=== PATIENT | female | born 1960 | race Caucasian/White ===

== ENCOUNTER → 2019-06-19 14:58 | Outpatient (CLI) | payer OTHER, SELFPAY ==
[2019-06-19 17:52] LABS: Absolute Lymphocyte Count 2.03 X10^3/uL (0.83-4.51); Absolute Neutrophil Count 4.6 X10^3/uL (2.0-7.7); Basophil# 0.07 X10^3/uL; Basophil% 0.9 % (0-1); Eosinophil# 0.24 X10^3/uL; Eosinophils% 3.2 % (0-5); Hematocrit 41.6 % (37-47); Hemoglobin 13.3 g/dL (12.0-15.0); Lymphocyte # 2.03 X10^3/ul (4.0); Lymphocyte % 27.2 % (19-41); Mean Corpuscular Hgb 28.4 pg (27.0-32.0); Mean Corpuscular Volume 88.9 fL (81-99); Mean Platelet Vol. 10.3 fl (6.2-12.0); Monocyte# 0.47 X10^3/uL; Monocyte% 6.3 % (0-10); NRBC Flagged by Analyzer 0 % (0-5); Neutrophil # 4.62 X10^3/uL (2.7-7.7); Platelet Count 316 K/mm3 (150-450); RBC Distribution Width CV 13.2 % (11.6-14.6); RBC Distribution Width SD 43.1 fl (35.1-43.9); Red Blood Count 4.68 M/mm3 (4.2-5.4); White Blood Count 7.5 K/mm3 (4.4-11.0)
[2019-06-19 18:11] LABS: AST(SGOT) 19 U/L (15-37); Alanine Aminotransfer ALT/SGPT 28 U/L (13-56); Albumin, Serum 3.5 g/dL (3.2-5.0); Alkaline Phosphatase 55 U/L (45-117); Anion Gap 5 (5-15); BUN 25 mg/dL (7-18); BUN/Creat Ratio 28.7 RATIO (10-20); Calcium,Total 9.3 mg/dL (8.5-10.1); Chloride 104 mmol/L (98-107); Creatinine, Serum 0.87 mg/dL (0.55-1.02); EST Glomerular Filtration Rate 70 mL/min (>60); Est Glom Filt Rate - Afr Amer 85 mL/min (>60); Globulin 3.6 g/dL (2.2-4.2); Glucose 84 mg/dL (74-106); Potassium 4.2 mmol/L (3.5-5.1); Protein, Total 7.1 g/dL (6.4-8.2); Sodium Level 139 mmol/L (136-145)
--- NOTE | 2019-07-06 10:12 | DCINST_ITS ---
Discharge Diet: Light diet - advance as tolerated Discharge Activity: May Not Drive Weight Bearing Status: Partial weight bearing - No weight on toes right foot, ok to put weight on heel Keep extremity elevated above heart level: Right Leg - Keep right foot elevated at least 50 minutes of every hour Call your doctor if your incision/area has: Continuous Slow Oozing, Foul Smelling Discharge Call your doctor if you observe: Fever of 101 or Higher, Shortness of breath, Chest pain, Calf discomfort, Uncontrolled pain Cleanse incision/area with: Do not get Incision Wet, Keep Dressing Clean & Dry Allergies/Adverse Reactions: Allergies No Known Allergies Allergy (Verified 07/06/19 09:52) Medications to take at Discharge Duloxetine Hcl [Cymbalta] 60 mg PO DAILY 06/29/19 Zolpidem Tartrate [Ambien] 10 mg PO QHS PRN 06/29/19 buPROPion tablets [Wellbutrin tablets] 100 mg PO BID 06/29/19 Primary Care Physician: Reyna Garcia MD [Primary Care Provider] - Test Results: Test results from this visit will be discussed in further detail at your follow- up appointment, if applicable. Please Follow Up With: Sudheer Werner DPM - Call Dr. Werner if needed: [phone] (office) or [phone] (cell) When: 1 week, sooner if needed
== END ==
LOC: MFPLAB 15:12 → AC 07-06 09:39 → MFPLAB 07-06 11:50
PROVIDERS: PCP Family Medicine; Referring Provider Family Medicine; Visit Provider Family Medicine
DX: Z01.818 Encounter for other preprocedural examination (principal)
CPT/HCPCS: 36415; 80053; 85025; J7120; J2405

== ENCOUNTER 2019-07-06 11:52 | Day surgery (SDC) | payer OTHER, SELFPAY ==
[2019-07-06] VITALS (7 sets, daily range): BP systolic 123–158; BP diastolic 70–92; PULSE 51–57; RESP 16; TEMP 36.8–37.1; O2SAT 100; BMI 31.1
[2019-07-06] MEDS: Lactated Ringers 1,000 ML 100 ML IV (10:07)
[2019-07-06] MEDS: Cefazolin 2 GM in 0.9% Normal Saline 100 ML IV (10:37)
--- NOTE | 2019-07-06 11:00 | RAD_ITS ---
STUDY: X-RAY RIGHT FOOT, TOE REASON FOR EXAM: Female, 59 years old. Excision of bone fragment right first toe TECHNIQUE: 4 intraoperative view(s) of the toe were obtained. COMPARISON: None. FINDINGS: 4 limited intraoperative views were performed as the patient has undergone a procedure to the distal phalanx of the great toe. RAD/Toe(s) Min 2 Views IMPRESSION: Intraoperative changes to the distal phalanx of the great toe Electronically Signed: Bran Latif MD at 13:17 EST , Service support ,
--- NOTE | 2019-07-06 11:00 | BON_PTH ---
PATIENT: CHAITANYA NICOLE LOC[place] [facility] [place][id number] AGE/SX: 59/F ROOM: RE07/06/[address]: Dr. Sudheer Werner DPM : 1960 BED: DIS: 07/06/2019 SPEC #: [id number] RECD: 07/06/19 14:34 STATUS: NIKITA RESteven #: [id number] [place]: 07/06/19 11:[address]: Sudheer Werner DEPT: SURGICAL PATHOLOGY RECD BY: Abiola Lara ENTERED: 07/09/19 12:28 SP TYPE: Bone OTHR DR: Dr. Reyna Garcia MD Tissues: Bone of foot, NOS Procedures: Decalcification bone/plaque Surgery Specimen Level IV HEADER OPERATION: Excision of bone fragment with arthroplasty/debridement first toe PRE-OP DIAGNOSIS: Displaced fracture first toe TISSUE SUBMITTED: First toe fracture MICROSCOPIC DIAGNOSIS First toe, fracture, bone, biopsy: Osteocollagenous tissue with reparative and reactive change. The findings are consistent with organizing fracture callous. AM:zenon 07/12/19 MICROSCOPIC DESCRIPTION Slides are reviewed. GROSS DESCRIPTION Received in fixative is one container labeled with the patient's name and designated first toe fracture. The specimen consists of two irregular fragments of fish bone that in aggregate measure 1 x 0.8 x 0.2 cm. The specimen is totally submitted in one cassette after decalcification. / AM:zenon 07/09/19 TC:5 CPT: 69331, 09177
--- NOTE | 2019-07-06 11:34 | RAD_ITS ---
STUDY: X-RAY - RIGHT FOOT CLINICAL: Female, 59 years old. Post op right foot debridement 1st toe TECHNIQUE: 3 view(s) of the foot. COMPARISON: None. FINDINGS: Patient is status post debridement of the distal phalanx of the great toe. Normal postoperative changes, no complications Normal talus, calcaneus, and tarsal bones. Normal visualized subtalar, talonavicular, calcaneocuboid, tarsal and tarsometatarsal articulations. Normal metatarsi. Normal metatarsophalangeal joint of the great toe. Normal tibial and fibular sesamoid bones. Normal interphalangeal joint of the great toe. Normal phalanges of the great toe. Normal second through fifth metatarsophalangeal joints. Normal interphalangeal joints and phalanges of the lesser toes. The soft tissue structures are unremarkable. RAD/Foot min 3 Views IMPRESSION: Postoperative changes around the distal phalanx of the great toe, no postoperative complications Electronically Signed: Bran Latif MD at 13:16 EST , Service support ,
--- NOTE | 2019-07-06 11:35 | PCM.DC.POD ---
Discharge Diet: Light diet - advance as tolerated Discharge Activity: May Not Drive Weight Bearing Status: Partial weight bearing - No weightbearing to toes right foot, ok to put weight on heel Keep extremity elevated above heart level: Right Leg - Keep right foot elevated for at least 50 minutes an hour Call your doctor if your incision/area has: Continuous Slow Oozing, Sudden Increased Bleeding, Foul Smelling Discharge Call your doctor if you observe: Fever of 101 or Higher, Shortness of breath, Chest pain, Calf discomfort, Uncontrolled pain Cleanse incision/area with: Do not get Incision Wet, Keep Dressing Clean & Dry Allergies/Adverse Reactions: Allergies No Known Allergies Allergy (Verified 07/06/19 09:52) Medications to take at Discharge Duloxetine Hcl [Cymbalta] 60 mg PO DAILY 06/29/19 Zolpidem Tartrate [Ambien] 10 mg PO QHS PRN 06/29/19 buPROPion tablets [Wellbutrin tablets] 100 mg PO BID 06/29/19 Hydrocodone/Acetaminophen [[place] 5-325 Tablet] 1 - 2 each PO Q6H PRN PRN 3 Days #20 tablet 07/06/19 The following prescriptions were given: Hydrocodone/Acetaminophen [[place]enzie 5-325 Tablet] 1 - 2 each PO Q6H PRN PRN 3 Days #20 tablet PRN Reason: Pain Score 1-10/10 [facility] Primary Care Physician: Reyna Garcia MD [Primary Care Provider] - Test Results: Test results from this visit will be discussed in further detail at your follow-up appointment, if applicable. Please Follow Up With: Sudheer Werner DPM - Call Dr. Werner if needed ([phone] cell or [phone] office) When: 1 week, sooner if needed
--- NOTE | 2019-07-06 11:40 | PCM.OPRPT ---
Report of Operation Date of Procedure: 07/06/19 Pre-Operative Diagnosis: Nonhealing right 1st toe fracture Post-Operative Diagnosis: Same Surgery/Procedure Performed:: Excision of bone fragment with debridement right 1st toe beaver trapper: yes - Dr. Shona Huang Type of Anesthesia:: Local MAC Specimen's removed: Excised bone fragment from right 1st toe sent to pathology Estimated Blood Loss (mL): 1mL Description of Procedure: Indications: This is a 59 year old female with nonhealing right 1st toe fracture. She broke her toe several months ago, has painful bone fragment at the dorsal base of the distal phalanx of the 1st toe. Symptoms persist and significantly limiting shoes and activity due to pain despite nonsurgical care. The options were discussed with her and she elected to proceed forward with excision of bone fragment w/ debridement arthroplasty 1st toe. Discussed the procedure, possible benefits vs risks, goals, expectations and estimated healing time. Tobacco/smoking cessation was also advised. Patient expressed understanding and agreement. All of her questions were answered. The consent form was reviewed with her and she freely signed it. Operative procedure: The patient was brought back to the operating room and was placed on the operating room table in the supine position. A safely belt was placed around her waist to secure her to the operating room table. She received prophylactic IV antibiotics, 2 grams Ancef. The patient received MAC anesthesia per the anesthesia team. A total of 10mL of 0.5% Bupivacaine plain was given as a local nerve block around the 1st ray on the right foot after the overlying skin was cleansed with 70% Isopropyl alcohol. A well padded pneumatic tourniquet was applied around the right ankle. The right foot was scrubbed, prepped, and draped in the usual aseptic fashion. A time out was performed and the patient was proper identified and the surgical plan confirmed. The right foot was exsanguinated using as Esmarch bandage and the right ankle pneumatic tourniquet was inflated to 250mmHg. A skin incision was made to the dorsal medial aspect aspect of the 1st toe overlying the interphalangeal joint. Careful dissection was completed down to the interphalangeal joint capsule which was incised and partially reflected exposing the interphalangeal joint. The extensor hallucis longus tendon was careful protected and retracted out of the way. The base of the distal phalanx was visualized and was noted to be a nonhealed bone fragment causing dorsal interphalangeal joint impingement with some degenerative changes noted. The bone fragment was not united. The fragment was excised. There was some impingement and degenerative changes to the very dorsal aspect of the head of the proximal phalanx which was resected using a sagittal saw. The resected bone was sent to pathology for further evaluation. Proper resection was confirmed with intraoperative fluoroscopy. There was no purulence, abscess, no necrosis. The remaining tissue was healthy and viable. The surgical site with copious amounts of normal saline solution. The subcutaneous tissue layer was reapproximated using 4-0 Vicryl, skin was reapproximated using 4-0 Nylon. An additional 3mL of 0.5% Bupivacaine was given as a nerve block around the surgical site for further pain control post operatively. A dressing was applied which consisted of Betadine soaked adaptic, 4x4 gauze, Kerlix and new bandage. The right ankle pneumatic tourniquet was deflated at end of procedure (total tourniquet time was 20 minutes). There was immediate return of warmth and perfusion to the foot and all 5 toes. The patient tolerated the above procedure well and the anesthesia well with no complication. She was transported from the operating room to the recovery room with vital signs stable and in good condition. Post operative orders were placed. Post operative instruction were reviewed with her and her who was with her today. No weight to toe, keep foot elevated at least 50 minutes per hour. [place] 5/325mg Po 1-2 tabs q 6 hrs prn pain. Keep dressing clean, dry and intact. Follow up in 1 week, sooner if needed. Post op xrays were obtained in the recovery room and reviewed, which confirmed the above, with no complications. Grafts/Implants Used: None - Complications None
== END 2019-07-06 13:00 | disposition home or self-care (01) ==
PROVIDERS: PCP Family Medicine; Referring Provider Podiatrist; Visit Provider Podiatrist
PROC: (CPT 11044; principal; 2019-07-06 10:45)
DX: S92.401G Displaced unspecified fracture of right great toe, subsequent encounter for fracture with delayed healing (principal); X58.XXXD Exposure to other specified factors, subsequent encounter; F32.9 Major depressive disorder, single episode, unspecified
CPT/HCPCS: 11044; 73630; 73660; 76000; 88305; 88311